=== PATIENT | male | born 1985 | race Caucasian/White ===

== ENCOUNTER 2017-08-08 16:21 | Emergency (ER) | payer OTHER ==
[~2017-08-08] VITALS: Ht 185.4 cm; Wt 77.1 kg
[2017-08-08 16:47] VITALS: BP 119/71
== END 2017-08-08 17:35 | disposition home or self-care (01) ==
LOC: ER 16:26
DX: H60.91 Unspecified otitis externa, right ear (principal)
CPT/HCPCS: A4606; Z7610

== ENCOUNTER 2017-08-24 23:29 | Emergency (ER) | payer OTHER ==
[~2017-08-24] VITALS: Ht 185.4 cm; Wt 77.1 kg
[2017-08-24 23:35] VITALS: BP 129/81
[2017-08-25] MEDS ORDERED: GENTAMICIN 0.1% OINT 15 GM TUBE TP ONE ×2 (00:08→00:30)
--- NOTE | 2017-08-25 00:20 | NUR ---
Pt states he used tea tree oil on a pimple, ended up with a small chemical burn on forehead. No other complaints Patient discharged to home in stable condition. Written and verbal after care instructions given. Patient verbalizes understanding of instruction.
== END 2017-08-25 00:33 | disposition home or self-care (01) ==
LOC: ER 23:33
DX: T65.91XA Toxic effect of unspecified substance, accidental (unintentional), initial encounter (principal); T20.46XA Corrosion of unspecified degree of forehead and cheek, initial encounter; Y93.89 Activity, other specified; Y92.89 Other specified places as the place of occurrence of the external cause; Y99.8 Other external cause status
CPT/HCPCS: 99283; A4606; Z7610